=== PATIENT | female | born 1985 | race Caucasian/White ===

== ENCOUNTER → 2021-10-27 16:09 | Outpatient (BNVA) | payer BC, SELFPAY | PROVIDERS: PCP Internal Medicine; Visit Provider Physician Assistant | DX: Z13.89 Encounter for screening for other disorder (principal) ==

== ENCOUNTER 2021-10-29 13:28 | Outpatient (REF) | payer BC, SELFPAY ==
[2021-10-29 16:12] LABS: Estimated Average Glucose 111 mg/dL; Hemoglobin A1c % 5.5 %
[2021-10-29 16:24] LABS: C Reactive Protein 0.52 mg/dL (< or = 0.50)
[2021-10-29 16:48] LABS: Insulin 11 uU/mL (2-29); Vitamin D 25-OH Total 25.5 ng/mL (>30)
[2021-10-29 17:19] LABS: Folate 11.6 ng/mL (> or = 4.0); Vitamin B12 349 pg/mL (200-900)
[2021-10-30 12:06] LABS: Calcium (PTHI) 9.6 mg/dL (8.6-10.2); PTHI 63 pg/mL (16-77)
[2021-11-01 14:06] LABS: Zinc 69 mcg/dL (60-130)
[2021-11-01 15:26] LABS: H Pylori Breath Test Negative (Negative)
[2021-11-03 11:56] LABS: Vitamin B1 11 nmol/L (8-30)
[2021-11-04 00:57] LABS: Vitamin A 54 mcg/dL (38-98)
== END 2021-10-29 13:29 | disposition home or self-care (01) ==
LOC: HO.LAB 13:28
PROVIDERS: PCP Internal Medicine; Referring Provider Physician Assistant; Visit Provider Physician Assistant
DX: Z01.818 Encounter for other preprocedural examination (principal); E66.01 Morbid (severe) obesity due to excess calories; G43.909 Migraine, unspecified, not intractable, without status migrainosus; I10 Essential (primary) hypertension; F32.A Depression, unspecified; F41.0 Panic disorder [episodic paroxysmal anxiety]; Z71.6 Tobacco abuse counseling; Z11.0 Encounter for screening for intestinal infectious diseases
CPT/HCPCS: 36415; 82306; 82607; 82746; 83013; 83036; 83525; 83970; 84425; 84590; 84630; 86140

== ENCOUNTER → 2021-11-05 14:00 | Outpatient (BNVA) | payer BC, SELFPAY | PROVIDERS: PCP Internal Medicine; Visit Provider Counselor Mental Health | DX: F43.10 Post-traumatic stress disorder, unspecified (principal); F32.A Depression, unspecified; E66.01 Morbid (severe) obesity due to excess calories | CPT/HCPCS: 90791 ==

== ENCOUNTER → 2021-11-19 09:07 | Outpatient (BNVA) | payer BC, SELFPAY | PROVIDERS: PCP Internal Medicine; Visit Provider Physician Assistant | DX: Z13.89 Encounter for screening for other disorder (principal) ==

== ENCOUNTER → 2021-12-09 08:10 | Outpatient (BNVA) | payer BC, SELFPAY | PROVIDERS: PCP Internal Medicine; Visit Provider Dietitian, Registered | DX: E66.9 Obesity, unspecified (principal) | CPT/HCPCS: 97802 ==

== ENCOUNTER 2021-12-17 07:37 | Outpatient (REF) | payer BC, SELFPAY ==
--- NOTE | ~2021-12-17 | XR_ITS ---
EXAMINATION: XR CHEST CLINICAL INFORMATION: Morbid obesity COMPARISON: None TECHNIQUE: 2 views of the chest were obtained. FINDINGS: No significant abnormality is noted involving the heart, lungs, mediastinum, bony thorax or soft tissues. XR/XR chest 2V IMPRESSION: No acute disease.
--- NOTE | ~2021-12-17 | US_ITS ---
EXAMINATION: US COMPLETE ABDOMEN WITH LIVER ELASTOGRAPHY CLINICAL INFORMATION: Obesity COMPARISON: None. TECHNIQUE: Real-time imaging of the abdominal viscera. Noninvasive ultrasound liver fibrosis assessment is performed using Odilon ElastPQ point quantification shear wave elastography (2D-SWE) with a C5-2 MHz transducer. Multiple elastography samples are obtained. FINDINGS: PANCREAS: Normal. ABDOMINAL AORTA: The proximal, middle, and distal aortic segments are normal in caliber. INFERIOR VENA CAVA: Visualized portions are normal. LIVER: Liver echotexture is increased. The liver is normal in size. The liver is normal in contour.. There are 2 hypoechoic lesions measuring 1.1 x 1.3 x 0.9 cm in the left lobe and 1.8 x 1.5 x 1.4 cm in the left lobe. No intrahepatic biliary duct dilatation. The right lobe measures 16 cm in length. The left lobe measures 10.6 cm in length. Portal flow is normal/hepatopedal Shear wave liver elastography median stiffness is 1.6 m/s (reference: normal median stiffness is 1.3 m/s or less). IQR/median stiffness to assess sampling precision is 0.09 (reference: good quality data set is IQR/median stiffness of 0.15 or less). GALLBLADDER: Normal. The gallbladder is physiologically distended without evidence of stones, sludge, polyps, wall thickening or pericholecystic fluid. COMMON BILE DUCT: Normal in caliber measuring 0.5 cm in diameter. RIGHT KIDNEY: Normal. No hydronephrosis. No renal calculi or focal parenchymal lesions. The kidney measures 10.4 cm in maximum dimension. LEFT KIDNEY: Normal. No hydronephrosis. No renal calculi or focal parenchymal lesions. The kidney measures 10.2 cm in maximum dimension. SPLEEN: Normal. The spleen measures 10.3 cm in maximum dimension. FREE FLUID: None. US/US abdomen comp w elastography IMPRESSION: 1. Impression: Echogenic liver. 2 hypoechoic liver lesions. Comparison with old outside exams if available is recommended. Otherwise, six-month ultrasound follow-up or liver MRI could be considered. 2. Liver elastography: Adequate liver sampling. In the absence of other known clinical signs, rules out compensated advanced chronic liver disease. REFERENCE: Society of Radiologists in Ultrasound Liver Stiffness Thresholds (2020): LIVER STIFFNESS THRESHOLDS: *Liver Stiffness equal or less than 1.3 m/s: High probability of being normal. *Liver Stiffness less than 1.7 m/s: *Liver Stiffness 1.7-2.1 m/s: Suggestive of compensated advanced chronic liver disease but need further test for confirmation. *Liver Stiffness over 2.1 m/s: Rules in compensated advanced chronic liver disease. *Liver Stiffness over 2.4 m/s: Suggestive of clinically significant portal hypertension. QUALITY OF DATA SET: *IQR/Median value equal or less than 0.15 implies a quality data set. *IQR/Median value over 0.15 implies a poor quality data set. SIGNIFICANT CHANGE FROM PRIOR EXAM: Significant change if liver stiffness measurement is 10% or greater from prior exam. OTHER CONSIDERATIONS: The stage of liver fibrosis may be overestimated in the setting of acute hepatitis, liver inflammation, elevated liver function tests, hepatic vascular congestion, obstructive cholestasis, non-fasting state, and infiltrative diseases such as amyloidosis and lymphoma. In some patients with NAFLD, the liver stiffness thresholds for compensated advanced chronic liver disease may be lower. In causes other than viral hepatitis and NAFLD, liver stiffness thresholds are not well established.
--- NOTE | ~2021-12-17 | FL_ITS ---
EXAMINATION: XR GI SERIES CLINICAL INFORMATION: Morbid obesity. COMPARISON: None TECHNIQUE: Air-contrast upper GI examination. FINDINGS: There is normal apposition of the vocal cords while saying E. There is normal elevation of the soft palate while saying candy. No nasopharyngeal reflux or tracheal aspiration was identified. No Zenker's diverticulum is seen. There is normal esophageal motility without evidence of stricture or mucosal abnormality. No hiatal hernia. There was some spontaneous transient mild gastroesophageal reflux within the distal third of the esophagus. The stomach demonstrated normal distensibility without abnormal mass or ulceration. There was no delay in gastric emptying. The duodenal bulb and sweep appeared unremarkable. FLUOROSCOPY TIME: 1.4 minutes DOSE AREA PRODUCT: 22.253 Gy-cm2 (herrera-centimeter squared) FL/FL upper GI series IMPRESSION: Mild gastroesophageal reflux which cleared rapidly. Otherwise unremarkable air-contrast upper GI examination.
--- NOTE | 2021-12-17 09:48 | ECG_ITS ---
Test Reason : obesity Blood Pressure : / mmHG Vent. Rate : 063 BPM Atrial Rate : 063 BPM P-R Int : 144 ms QRS Dur : 082 ms QT Int : 418 ms P-R-T Axes : 019 008 011 degrees QTc Int : 427 ms Normal sinus rhythm Normal ECG No previous ECGs available Referred By: Yesenia Cardoza Electronically Signed By:YOUNG GEORGE
== END 2021-12-17 07:38 | disposition home or self-care (01) ==
LOC: HO.US 07:37
PROVIDERS: PCP Internal Medicine; Visit Provider Physician Assistant
DX: Z01.818 Encounter for other preprocedural examination (principal); E66.01 Morbid (severe) obesity due to excess calories
CPT/HCPCS: 71046; 74240; 76705; 76981; 93005

== ENCOUNTER → 2022-01-05 14:54 | Outpatient (BNVA) | payer BC, SELFPAY | PROVIDERS: PCP Internal Medicine; Visit Provider Physician Assistant | DX: E66.01 Morbid (severe) obesity due to excess calories (principal) ==

== ENCOUNTER 2022-01-27 14:51 | Outpatient (REF) | payer BC, SELFPAY ==
--- NOTE | ~2022-01-27 | MR_ITS ---
EXAMINATION: MR ABDOMEN WITHOUT AND WITH CONTRAST CLINICAL INFORMATION: Liver lesions COMPARISON: Abdominal ultrasound 12/07/2021 TECHNIQUE: MRI of the abdomen before and after the IV administration of 10 mL of Gadavist was obtained using routine sequences. FINDINGS: LUNG BASES: The visualized lung bases are unremarkable. KIDNEYS AND URETERS: Bosniak 1 benign-appearing right renal cyst, no imaging follow-up recommended. GALLBLADDER: Unremarkable. LIVER AND BILIARY TREE: Loss of signal on opposed phase imaging compatible with hepatic steatosis. No suspicious liver lesion or MR correlate to the sonographic findings. Liver is enlarged measuring 18.9 cm in span. PANCREAS: Unremarkable SPLEEN: Unremarkable ADRENAL GLANDS: Unremarkable GASTROINTESTINAL TRACT: Unremarkable. LYMPH NODES: No lymphadenopathy. VASCULAR: Unremarkable ABDOMINAL WALL: Unremarkable. OSSEOUS STRUCTURES: Unremarkable. MR/MR abdomen wo/w con IMPRESSION: No suspicious liver lesion or MR correlate to the sonographic findings. Hepatomegaly and hepatic steatosis.
== END 2022-01-27 14:52 | disposition home or self-care (01) ==
LOC: HO.MRI 14:51
PROVIDERS: Visit Provider Surgery
DX: R16.0 Hepatomegaly, not elsewhere classified (principal)
CPT/HCPCS: 74183; A9585

== ENCOUNTER 2022-03-06 07:56 | Outpatient (REF) | payer BC, SELFPAY | END 2022-03-06 07:57 | disposition home or self-care (01) | LOC: HO.LAB 07:56 | PROVIDERS: PCP Internal Medicine; Visit Provider Physician Assistant Surgical | DX: Z13.89 Encounter for screening for other disorder (principal) ==

== ENCOUNTER 2022-03-18 06:17 | Inpatient (IN) | payer BC, SELFPAY ==
[2022-01-30 12:23] LABS: MANUAL DIFF FLAG NO
[2022-01-30 12:42] LABS: Basophils Percent Auto 0.3 % (0-2); Eosinophils Absolute Auto 0.1 X10*3/uL (0.0-0.4); Eosinophils Percent Auto 1.4 % (0-4); Hematocrit 44.4 % (37.0-47.0); Hemoglobin 14.5 g/dl (12.0-16.0); Imm Gran Abs Auto 0.01 X10*3/uL (0.00-0.03); Imm Gran Pct Auto 0.1 % (0.0-0.4); Lymphocytes Absolute Auto 1.8 X10*3/uL (1.2-4.9); Lymphocytes Percent Auto 24.2 % (20-40); Mean Corpuscular HGB Conc 32.7 g/dl (31.0-35.0); Mean Corpuscular Volume 85.7 fL (80.0-98.0); Mean Platelet Volume 12.1 fL (9.4-12.3); Monocytes Absolute Auto 0.7 X10*3/uL (0.1-1.2); Monocytes Percent Auto 9.5 % (2-11); Neutrophils Absolute Auto 4.7 x10*3/uL (2.0-8.3); Neutrophils Percent Auto 64.5 % (45-73); Platelet Count 219 X10*3/uL (160-400); Red Blood Count 5.18 X10*6/uL (4.20-5.50); Red Cell Distribution Width 14.1 % (11.0-16.0); White Blood Count 7.2 X10*3/uL (4.8-10.8)
[2022-01-30 12:54] LABS: Estimated Average Glucose 97 mg/dL
[2022-01-30 13:01] LABS: Alanine Aminotransferase 20 U/L (0-31); Albumin Level 4.4 g/dL (3.5-5.0); Alkaline Phosphatase 66 U/L (39-117); Anion Gap 13 (12-20); Aspartate Amino Transferase 16 U/L (5-31); Bilirubin Total 0.2 mg/dL (0.0-1.0); Blood Urea Nitrogen 13 mg/dL (9-16); C Reactive Protein 1.16 mg/dL (< or = 0.50); Calcium 9.8 mg/dL (8.4-10.2); Carbon Dioxide 28 mmol/L (22-29); Chloride 104 mmol/L (96-108); Cholesterol 183 mg/dL; Estimated Glomerular Filt Rate > 60; Glucose Random 101 mg/dL (60-115); HDL Cholesterol 29 mg/dL; LDL Cholesterol Calculated 131 mg/dl; Potassium 4.6 mmol/L (3.3-5.1); Sodium 140 mmol/L (135-145); Total Protein 7.1 g/dL (6.5-8.0); Triglycerides 119 mg/dL
[2022-01-30 13:13] LABS: Partial Thromboplastin Time 34.2 SEC (24.1-38.0)
[2022-01-30 13:24] LABS: Insulin 11 uU/mL (2-29); TSH reflex Free T4 1.48 uIU/mL (0.32-4.0)
--- NOTE | 2022-01-31 23:50 | P.HPSUR_ITS ---
Pre-Procedural Eval Section A Date of Service: 01/31/22 The patient is an INPATIENT: Yes The History & Physical has been completed within 30 days and I have reviewed it.: Yes Section B Chief Complaint: obesity Relevant Family History (Specify if Yes): No Relevant Social History: None Present Medications: None Medical History: No relevant PMH History of Previous Operations: No relevant previous surgery Allergies: Allergies Allergy/AdvReac Type Severity Reaction Status Date / Time Sulfa (Sulfonamide Allergy Severe Blister Verified 01/14/22 08:17 Antibiotics) Review of Systems Sugical H&P ROS: Negative: Constitution, Cardiovascular, Respiratory, Neurological, Psychiatric, Hem-Onc, Allergic/Immunologic, Gastrointestinal, Genitourinary, Musculoskeletal, Integumentary, Endocrine and Eyes/Ears/Nose/Thro at Exam Surgical H&P Exam: Normal: HEENT, Normal: Heart, Normal: Lungs, Normal: Extremities, Normal: Abdomen, Normal: Skin and Normal: Neurological Plan Diagnosis/Plan: Unchanged I have reviewed the history and physical and performed a pertinent physical examination on my patient. No changes have occurred unless specified.
[2022-02-03 13:55] VITALS: BMI 48.7
--- NOTE | 2022-02-04 09:11 | P.CONAN_ITS ---
HPI - Anesthesia Eval Consult details Narrative: 36yo F for Gastrectomy Sleeve EGD,Possible diaphragmatic hernia,Possible ventral hernia,Possible open PMFSH Active Problems Active Problems: All Active Problems (Updated 02/03/22 @ 13:54 by Dianne Eckert RN) Morbid obesity (Acute) Pre-op evaluation (Acute) HTN (hypertension), benign (Acute) Depression (Acute) PTSD (post-traumatic stress disorder) (Acute) Migraine (Acute) Anxiety (Acute) Liver mass (Acute) Past Medical History Medical History (Updated 02/03/22 @ 13:54 by Dianne Eckert RN) Anxiety COVID-19 vaccine series completed Depression Eating disorder Exercise-induced asthma HTN (hypertension) Migraine PTSD (post-traumatic stress disorder) Family History Family History Mother Depression Alcoholism Father No problems noted. Sister Obesity Thyroid condition Depression Anxiety Sister No problems noted. Brother No problems noted. Daughter No problems noted. Surgical History Surgical History (Updated 02/03/22 @ 13:52 by Dianne Eckert RN) History of colposcopy History of placement of ear tubes Hx of adenoidectomy Hx of bladder endoscopy Hx of bone graft Hx of colonoscopy Hx of dilation and curettage Hx of wisdom tooth extraction Social History Social History Are you a primary resident care associate to a significant other at home: No Do you presently have visiting nurse or other home services: No Alcohol intake: never Patient Tobacco Use Status: Never used Tobacco Meds Allergies Allergy/AdvReac Type Severity Reaction Status Date / Time Sulfa (Sulfonamide Allergy Severe Blister Verified 01/14/22 08:17 Antibiotics) Home Medications Medication Instructions Recorded Confirmed Last Taken Type citalopram 40 mg tablet 40 mg PO QAM 10/27/21 02/03/22 Unknown History lorazepam 0.5 mg tablet 0.5 mg PO DAILY PRN Anxiety 10/27/21 02/03/22 Unknown History metoprolol succinate 25 mg 25 mg PO QAM 10/27/21 02/03/22 Unknown History tablet,extended release 24 hr multivitamin (Daily Multi-Vitamin) 1 tab PO DAILY 10/27/21 02/03/22 Unknown History naproxen sodium 220 mg capsule 220 mg PO BID PRN Pain 10/27/21 02/03/22 01/22/22 History verapamil 180 mg tablet,extended 180 mg PO QPM 10/27/21 02/03/22 Unknown History release albuterol sulfate 90 mcg/actuation 2 inh inhalation Q4H PRN Shortness 02/03/22 02/03/22 Unknown History breath activated powder inhaler Of Breath (ProAir RespiClick) Exam Exam Date and Time: February 04, 2022 0911 Height,Weight and Vital Signs: Height 5 ft 6 in Weight 136.985 kg Pertinent Lab Results Pertinent Lab Results: Laboratory Tests 01/30/22 01/30/22 01/30/22 12:16 12:20 12:20 WBC 7.2 RBC 5.18 Hgb 14.5 Hct 44.4 MCV 85.7 MCH 28.0 MCHC 32.7 RDW 14.1 Plt Count 219 MPV 12.1 Immature Gran % (Auto) 0.1 Neut % (Auto) 64.5 Lymph % (Auto) 24.2 [place] % (Auto) 9.5 Eos % (Auto) 1.4 Baso % (Auto) 0.3 Lymph # (Auto) 1.8 [place] # (Auto) 0.7 Eos # (Auto) 0.1 Baso # (Auto) 0.0 Abs Immat Gran (auto) 0.01 Absolute Neuts (auto) 4.7 Absolute Nucleated RBC 0.000 Nucleated RBC % (auto) 0.0 PT 12.0 INR 1.0 APTT 34.2 Sodium Potassium Chloride Carbon Dioxide Anion Gap BUN Creatinine Estim Creat Clear Calc Estimated GFR Random Glucose Estimat Average Glucose Hemoglobin A1c % Insulin Level Calcium Total Bilirubin AST ALT Alkaline Phosphatase C-Reactive Protein Total Protein Albumin Triglycerides Cholesterol LDL Cholesterol, Calc HDL Cholesterol TSH Blood Type A Negative Antibody Screen NEGATIVE 01/30/22 01/30/22 12:20 12:20 WBC RBC Hgb Hct MCV MCH MCHC RDW Plt Count MPV Immature Gran % (Auto) Neut % (Auto) Lymph % (Auto) [place] % (Auto) Eos % (Auto) Baso % (Auto) Lymph # (Auto) [place] # (Auto) Eos # (Auto) Baso # (Auto) Abs Immat Gran (auto) Absolute Neuts (auto) Absolute Nucleated RBC Nucleated RBC % (auto) PT INR APTT Sodium 140 Potassium 4.6 Chloride 104 Carbon Dioxide 28 Anion Gap 13 BUN 13 Creatinine 0.93 Estim Creat Clear Calc TNP Estimated GFR > 60 Random Glucose 101 Estimat Average Glucose 97 Hemoglobin A1c % 5.0 Insulin Level 11 Calcium 9.8 Total Bilirubin 0.2 AST 16 ALT 20 Alkaline Phosphatase 66 C-Reactive Protein 1.16 H Total Protein 7.1 Albumin 4.4 Triglycerides 119 Cholesterol 183 LDL Cholesterol, Calc 131 HDL Cholesterol 29 TSH 1.48 Blood Type Antibody Screen Narrative Narrative: EKG 11/2021 Vent. Rate : 063 BPM ? ? Atrial Rate : 063 BPM ?? P-R Int : 144 ms? QRS Dur : 082 ms ? ? QT Int : 418 ms ? ? ? P-R-T Axes : 019 008 011 degrees ?? QTc Int : 427 ms ? Normal sinus rhythm Normal ECG No previous ECGs available Assessment and Plan Assessment Anesthesia Assessment: Chart Reviewed
[2022-02-04 13:04] LABS: COVID-19 Test Positive (Negative); IDNOW Serial# 9DB6401D
[2022-03-06 08:20] LABS: MANUAL DIFF FLAG NO
[2022-03-06 08:33] LABS: Basophils Percent Auto 0.5 % (0-2); Eosinophils Absolute Auto 0.1 X10*3/uL (0.0-0.4); Eosinophils Percent Auto 1.7 % (0-4); Hematocrit 43.8 % (37.0-47.0); Hemoglobin 14.5 g/dl (12.0-16.0); Imm Gran Abs Auto 0.03 X10*3/uL (0.00-0.03); Imm Gran Pct Auto 0.4 % (0.0-0.4); Lymphocytes Absolute Auto 2.1 X10*3/uL (1.2-4.9); Lymphocytes Percent Auto 25.1 % (20-40); Mean Corpuscular HGB Conc 33.1 g/dl (31.0-35.0); Mean Corpuscular Volume 84.7 fL (80.0-98.0); Mean Platelet Volume 11.9 fL (9.4-12.3); Monocytes Absolute Auto 0.7 X10*3/uL (0.1-1.2); Monocytes Percent Auto 8.9 % (2-11); Neutrophils Absolute Auto 5.2 x10*3/uL (2.0-8.3); Neutrophils Percent Auto 63.4 % (45-73); Platelet Count 229 X10*3/uL (160-400); Red Blood Count 5.17 X10*6/uL (4.20-5.50); Red Cell Distribution Width 14.7 % (11.0-16.0); White Blood Count 8.2 X10*3/uL (4.8-10.8)
[2022-03-06 08:41] LABS: Prothrombin Time 11.7 SEC (10.0-13.1)
[2022-03-06 08:43] LABS: Partial Thromboplastin Time 31.2 SEC (26.0-36.4)
[2022-03-06 08:48] LABS: Estimated Average Glucose 108 mg/dL; Hemoglobin A1c % 5.4 %
[2022-03-06 09:10] LABS: Alanine Aminotransferase 14 U/L (0-31); Albumin Level 4.5 g/dL (3.5-5.0); Alkaline Phosphatase 55 U/L (39-117); Anion Gap 13 (12-20); Aspartate Amino Transferase 12 U/L (5-31); Bilirubin Total 0.5 mg/dL (0.0-1.0); Blood Urea Nitrogen 16 mg/dL (9-16); C Reactive Protein 0.54 mg/dL (< or = 0.50); Calcium 9.6 mg/dL (8.4-10.2); Carbon Dioxide 28 mmol/L (22-29); Chloride 102 mmol/L (96-108); Cholesterol 208 mg/dL; Creatinine Clr Calc Pharmacy 128.9; Estimated Glomerular Filt Rate > 60; Glucose Random 105 mg/dL (60-115); HDL Cholesterol 34 mg/dL; LDL Cholesterol Calculated 145 mg/dl; Potassium 4.2 mmol/L (3.3-5.1); Sodium 139 mmol/L (135-145); Triglycerides 146 mg/dL
[2022-03-06 09:32] LABS: TSH reflex Free T4 1.59 uIU/mL (0.32-4.0)
--- NOTE | 2022-03-14 15:06 | P.HPSUR_ITS ---
Pre-Procedural Eval Section A Date of Service: 03/14/22 The patient is an INPATIENT: Yes The History & Physical has been completed within 30 days and I have reviewed it.: Yes Section B Chief Complaint: obesity Relevant Family History (Specify if Yes): No Relevant Social History: None Present Medications: None Medical History: No relevant PMH History of Previous Operations: No relevant previous surgery Allergies: Allergies Allergy/AdvReac Type Severity Reaction Status Date / Time Sulfa (Sulfonamide Allergy Severe Blister Verified 01/14/22 08:17 Antibiotics) Review of Systems Sugical H&P ROS: Negative: Constitution, Cardiovascular, Respiratory, Neurological, Psychiatric, Hem-Onc, Allergic/Immunologic, Gastrointestinal, Genitourinary, Musculoskeletal, Integumentary, Endocrine and Eyes/Ears/Nose/Thro at Exam Surgical H&P Exam: Normal: HEENT, Normal: Heart, Normal: Lungs, Normal: Extremities, Normal: Abdomen, Normal: Skin and Normal: Neurological Plan Diagnosis/Plan: Unchanged I have reviewed the history and physical and performed a pertinent physical examination on my patient. No changes have occurred unless specified.
--- NOTE | 2022-03-17 10:10 | P.CONAN_ITS ---
Documented by User: Dariana Haddad NP 03/17/22 10:11 HPI - Anesthesia Eval Consult details Narrative: 36yo F for Gastrectomy Sleeve EGD,Possible diaphragmatic hernia,Possible ventral hernia,Possible open PMFSH Active Problems Active Problems: All Active Problems (Updated 02/03/22 @ 13:54 by Dianne Eckert RN) Morbid obesity (Acute) Pre-op evaluation (Acute) HTN (hypertension), benign (Acute) Depression (Acute) PTSD (post-traumatic stress disorder) (Acute) Migraine (Acute) Anxiety (Acute) Liver mass (Acute) Past Medical History Medical History Anxiety COVID-19 vaccine series completed Depression Eating disorder Exercise-induced asthma HTN (hypertension) Migraine PTSD (post-traumatic stress disorder) Family History Family History Mother Depression Alcoholism Father No problems noted. Sister Obesity Thyroid condition Depression Anxiety Sister No problems noted. Brother No problems noted. Daughter No problems noted. Surgical History Surgical History History of colposcopy History of placement of ear tubes Hx of adenoidectomy Hx of bladder endoscopy Hx of bone graft Hx of colonoscopy Hx of dilation and curettage Hx of wisdom tooth extraction Social History Social History Are you a primary hearing healthcare practitioner to a significant other at home: No Do you presently have visiting nurse or other home services: No Alcohol intake: never Patient Tobacco Use Status: Never used Tobacco Use of substances other than those prescribed or required for medical reasons: No Have you been hit, kicked, punched, or otherwise hurt by someone within the past year? If so, by whom?: No Are you DNR?: No Advance Directives: No Advance Directives Information Provided: No (patient declined brochure-is aware of how to obtain form) Advance Directives on File: No Recently lost weight without trying: No Eating poorly because of decreased appetite: No Nutrition Risks: No Nutritional Risk Patient : No FDLMP: 01/22/22 : No Poor oral hygiene: No (upper left front dental implant) Meds Allergies Allergy/AdvReac Type Severity Reaction Status Date / Time Sulfa (Sulfonamide Allergy Severe Blister Verified 01/14/22 08:17 Antibiotics) Home Medications Medication Instructions Recorded Confirmed Last Taken Type citalopram 40 mg tablet 40 mg PO QAM 10/27/21 03/04/22 03/17/22 History lorazepam 0.5 mg tablet 0.5 mg PO DAILY PRN Anxiety 10/27/21 03/04/22 02/15/22 History metoprolol succinate 25 mg 25 mg PO QAM 10/27/21 03/04/22 03/18/22 History tablet,extended release 24 hr multivitamin (Daily Multi-Vitamin 1 tab PO DAILY 10/27/21 03/04/22 03/04/22 History tablet) verapamil 180 mg tablet,extended 180 mg PO QPM 10/27/21 03/04/22 03/17/22 History release albuterol sulfate 90 mcg/actuation 2 inh inhalation Q4H PRN Shortness 02/03/22 03/04/22 02/15/22 History breath activated powder inhaler Of Breath (ProAir RespiClick) Exam Exam Date and Time: March 17, 2022 1010 Height,Weight and Vital Signs: Height 5 ft 6 in Weight 136.985 kg Pertinent Lab Results Pertinent Lab Results: Laboratory Tests 01/30/22 01/30/22 01/30/22 12:16 12:20 12:20 WBC 7.2 RBC 5.18 Hgb 14.5 Hct 44.4 MCV 85.7 MCH 28.0 MCHC 32.7 RDW 14.1 Plt Count 219 MPV 12.1 Immature Gran % (Auto) 0.1 Neut % (Auto) 64.5 Lymph % (Auto) 24.2 [place] % (Auto) 9.5 Eos % (Auto) 1.4 Baso % (Auto) 0.3 Lymph # (Auto) 1.8 [place] # (Auto) 0.7 Eos # (Auto) 0.1 Baso # (Auto) 0.0 Abs Immat Gran (auto) 0.01 Absolute Neuts (auto) 4.7 Absolute Nucleated RBC 0.000 Nucleated RBC % (auto) 0.0 PT 12.0 INR 1.0 APTT 34.2 Sodium Potassium Chloride Carbon Dioxide Anion Gap BUN Creatinine Estim Creat Clear Calc Estimated GFR Random Glucose Estimat Average Glucose Hemoglobin A1c % Insulin Level Calcium Total Bilirubin AST ALT Alkaline Phosphatase C-Reactive Protein Total Protein Albumin Triglycerides Cholesterol LDL Cholesterol, Calc HDL Cholesterol TSH COVID-19 ([facility]O) COVID-19 Clin Com Blood Type A Negative Antibody Screen NEGATIVE 01/30/22 01/30/22 02/04/22 12:20 12:20 12:44 WBC RBC Hgb Hct MCV MCH MCHC RDW Plt Count MPV Immature Gran % (Auto) Neut % (Auto) Lymph % (Auto) [place] % (Auto) Eos % (Auto) Baso % (Auto) Lymph # (Auto) [place] # (Auto) Eos # (Auto) Baso # (Auto) Abs Immat Gran (auto) Absolute Neuts (auto) Absolute Nucleated RBC Nucleated RBC % (auto) PT INR APTT Sodium 140 Potassium 4.6 Chloride 104 Carbon Dioxide 28 Anion Gap 13 BUN 13 Creatinine 0.93 Estim Creat Clear Calc TNP Estimated GFR > 60 Random Glucose 101 Estimat Average Glucose 97 Hemoglobin A1c % 5.0 Insulin Level 11 Calcium 9.8 Total Bilirubin 0.2 AST 16 ALT 20 Alkaline Phosphatase 66 C-Reactive Protein 1.16 H Total Protein 7.1 Albumin 4.4 Triglycerides 119 Cholesterol 183 LDL Cholesterol, Calc 131 HDL Cholesterol 29 TSH 1.48 COVID-19 ([facility]) Positive A COVID-19 Clin Com See Note Blood Type Antibody Screen 03/06/22 03/06/22 03/06/22 08:15 08:15 08:15 WBC 8.2 RBC 5.17 Hgb 14.5 Hct 43.8 MCV 84.7 MCH 28.0 MCHC 33.1 RDW 14.7 Plt Count 229 MPV 11.9 Immature Gran % (Auto) 0.4 Neut % (Auto) 63.4 Lymph % (Auto) 25.1 [place] % (Auto) 8.9 Eos % (Auto) 1.7 Baso % (Auto) 0.5 Lymph # (Auto) 2.1 [place] # (Auto) 0.7 Eos # (Auto) 0.1 Baso # (Auto) 0.0 Abs Immat Gran (auto) 0.03 Absolute Neuts (auto) 5.2 Absolute Nucleated RBC 0.000 Nucleated RBC % (auto) 0.0 PT 11.7 INR 1.0 APTT 31.2 Sodium 139 Potassium 4.2 Chloride 102 Carbon Dioxide 28 Anion Gap 13 BUN 16 Creatinine 0.86 Estim Creat Clear Calc 128.9 Estimated GFR > 60 Random Glucose 105 Estimat Average Glucose Hemoglobin A1c % Insulin Level Calcium 9.6 Total Bilirubin 0.5 AST 12 ALT 14 Alkaline Phosphatase 55 C-Reactive Protein 0.54 H Total Protein 7.0 Albumin 4.5 Triglycerides 146 Cholesterol 208 LDL Cholesterol, Calc 145 HDL Cholesterol 34 TSH 1.59 COVID-19 ([facility]O) COVID-[employer] Blood Type Antibody Screen 03/06/22 03/06/22 08:15 08:15 WBC RBC Hgb Hct MCV MCH MCHC RDW Plt Count MPV Immature Gran % (Auto) Neut % (Auto) Lymph % (Auto) [place] % (Auto) Eos % (Auto) Baso % (Auto) Lymph # (Auto) [place] # (Auto) Eos # (Auto) Baso # (Auto) Abs Immat Gran (auto) Absolute Neuts (auto) Absolute Nucleated RBC Nucleated RBC % (auto) PT INR APTT Sodium Potassium Chloride Carbon Dioxide Anion Gap BUN Creatinine Estim Creat Clear Calc Estimated GFR Random Glucose Estimat Average Glucose 108 Hemoglobin A1c % 5.4 Insulin Level Calcium Total Bilirubin AST ALT Alkaline Phosphatase C-Reactive Protein Total Protein Albumin Triglycerides Cholesterol LDL Cholesterol, Calc HDL Cholesterol TSH COVID-19 ([facility]ALBERTO) COVID-19 [employer] Blood Type A Negative Antibody Screen NEGATIVE Narrative Narrative: EKG 11/2021 Vent. Rate : 063 BPM ? ? Atrial Rate : 063 BPM ?? P-R Int : 144 ms? QRS Dur : 082 ms ? ? QT Int : 418 ms ? ? ? P-R-T Axes : 019 008 011 degrees ?? QTc Int : 427 ms ? Normal sinus rhythm Normal ECG No previous ECGs available Assessment and Plan Assessment Anesthesia Assessment: Chart Reviewed Documented by User: Soledad Joyner MD 03/18/22 07:19 [facility] Past Medical History Medical History Anxiety COVID-19 vaccine series completed Depression Eating disorder Exercise-induced asthma HTN (hypertension) Migraine PTSD (post-traumatic stress disorder) Family History Family History Mother Depression Alcoholism Father No problems noted. Sister Obesity Thyroid condition Depression Anxiety Sister No problems noted. Brother No problems noted. Daughter No problems noted. Family history of problems with anesthesia: No Surgical History Surgical History History of colposcopy History of placement of ear tubes Hx of adenoidectomy Hx of bladder endoscopy Hx of bone graft Hx of colonoscopy Hx of dilation and curettage Hx of wisdom tooth extraction History of Problems with Anesthesia: No Social History Social History Are you a primary hearing healthcare practitioner to a significant other at home: No Do you presently have visiting nurse or other home services: No Alcohol intake: never Patient Tobacco Use Status: Never used Tobacco Use of substances other than those prescribed or required for medical reasons: No Have you been hit, kicked, punched, or otherwise hurt by someone within the past year? If so, by whom?: No Are you DNR?: No Advance Directives: No Advance Directives Information Provided: No (patient declined brochure-is aware of how to obtain form) Advance Directives on File: No Recently lost weight without trying: No Eating poorly because of decreased appetite: No Nutrition Risks: No Nutritional Risk Patient : No FDLMP: 01/22/22 : No Poor oral hygiene: No (upper left front dental implant) Meds Allergies Allergy/AdvReac Type Severity Reaction Status Date / Time Sulfa (Sulfonamide Allergy Severe Blister Verified 01/14/22 08:17 Antibiotics) Home Medications Medication Instructions Recorded Confirmed Last Taken Type citalopram 40 mg tablet 40 mg PO QAM 10/27/21 03/04/22 03/17/22 History lorazepam 0.5 mg tablet 0.5 mg PO DAILY PRN Anxiety 10/27/21 03/04/22 02/15/22 History metoprolol succinate 25 mg 25 mg PO QAM 10/27/21 03/04/22 03/18/22 History tablet,extended release 24 hr multivitamin (Daily Multi-Vitamin 1 tab PO DAILY 10/27/21 03/04/22 03/04/22 History tablet) verapamil 180 mg tablet,extended 180 mg PO QPM 10/27/21 03/04/22 03/17/22 History release albuterol sulfate 90 mcg/actuation 2 inh inhalation Q4H PRN Shortness 02/03/22 03/04/22 02/15/22 History breath activated powder inhaler Of Breath (ProAir RespiClick) Exam Airway Mallampati Class: II TM Dist: >3cm Neck ROM: Full Assessment and Plan Assessment Anesthesia Assessment: Anesthesia Plan Discussed Final Anesthetic Review Family History of Problems with Anesthesia: No History of Problems with Anesthesia: No NPO: Yes ASA Class: III Final Preanesthetic Review: No Changes in Pt Med Stat, Meds/Allgs Chart Reviewed, Consent Obtained/Reviewed and Anes Risks/Benef Reviewed Patient Risk: Intermediate Procedure Risk: Intermediate Anesthetic Plan Anesthetic Plan: GA Disposition: Standard PACU
[2022-03-18] VITALS (18 sets, daily range): BP systolic 126–160; BP diastolic 53–85; PULSE 66–101; RESP 10–20; TEMP 36.4–37.4; O2SAT 93–100
[2022-03-18 06:53] LABS: UPreg QC Valid YES; Urine Pregnancy NEGATIVE (NEGATIVE)
[2022-03-18 07:04] LABS: COVID-19 Test Negative (Negative); IDNOW Serial# 16C4AD1C
[2022-03-18] MEDS: Lactated Ringers 1,000 ML 100 ML IVCONT ×3 (07:07→20:53)
[2022-03-18] MEDS: Lactated Ringers 1,000 ML 999 ML IV (07:08)
--- NOTE | 2022-03-18 07:22 | PHA.MEDREC ---
Pharmacy Consult ? Medication Reconciliation Pharmacy has reviewed the medication reconciliation completed by nursing. There are no remarkable issue for provider's attention Bucky BeyD
--- NOTE | 2022-03-18 10:26 | P.DS_ITS ---
DS: Providers Provider Date of Service: 03/19/22 Date of admission: 03/18/22 06:17 Primary care physician: Gilma Mejia MD DS: Summary Hospital Course Hospital Course: ADMITTING DIAGNOSIS: morbid obesity, HTN, depression , anxiety, PTSD ? DISCHARGE DIAGNOSIS: same, s/p laparoscopic sleeve gastrectomy ? PAST SURGICAL HISTORY: adenoidectomy ? PROCEDURE: upper endoscopy, laparoscopic sleeve gastrectomy ? DISCHARGE SUMMARY: ? History of Present Illness: ? The patient is a?36 year-old woman with a BMI of?55.7 kg/m2 and associated co-morbidities as described above. The patient had extensive work-up,lost?53 lbs preoperatively and was electively scheduled for laparoscopic, possible open sleeve gastrectomy and gastropexy. Risks and complications of the surgery were discussed with the patient in advance, particularly the possibility of , pulmonary embolism, anastomotic leak, bleeding, bowel injury, GERD, cardiac, renal or pulmonary complications. The patient understood all the risks and was in agreement with the surgical plan. ? Hospital Course: ? The patient underwent an uneventful laparoscopic sleeve gastrectomy with gastro pexy on the day of admission. Postoperatively, the patient was transferred to the surgical floor. The patient received IV Acetaminophen and IV dilaudid for pain control. Patient was started on bariatric phase 1 diet POD #0. On postoperative day one, the patient was feeling well without nausea, vomiting, fevers, or tachycardia. The patient had some mild incisional pain and the abdomen was soft. ? On the morning of postoperative day one, the patient was continued on 1 ounce of water or ice every half hour. During the day, the patient did fairly well, having some incisional pain, but able to ambulate adequately and to tolerate liquids well. ? Since the patient is doing well, we decided that the patient was ready to be discharged. The patient was given instructions to follow-up with me next week and to call my office for any fever over 101, persistent abdominal pain, nausea, vomiting, GERD, symptoms of DVT such as calf tenderness, or leg swelling, or pulmonary embolism such as chest pain or shortness of breath. The patient was also instructed to drink 40-60 ounces of liquids per day using the 1-ounce cups. The patient had been given prescriptions for Tylenol for pain, Zofran prn for nausea, and pantoprazole and carafate previously. The patient was encouraged to ambulate and use the incentive spirometer. The patient was allowed to shower, but no baths, and encouraged to stay active at home. All of these instructions were given to the patient personally. All questions were answered and the patient understood all instructions, the instructions were also given to the patient in print. Time Spent with Patient Time attestation: Total time spent providing and/or coordinating discharge services: Discharge coordination time: Less than 30 minutes Quality: Safe Use of Opioids Does Pt have an Active Cancer Diagnosis on the Problem List?: No Quality: Stroke Does the patient have a stroke diagnosis?: No Physical Exam Vital Signs: Vital Signs: Last Vital Signs Temp 97.6 F 03/18/22 06:22 Pulse 79 03/18/22 06:22 Resp 16 03/18/22 06:22 BP 141/85 H 03/18/22 06:22 Pulse Ox 95 03/18/22 06:22 O2 Del Method 03/18/22 06:22 BMI result Body Mass Index 48.7 DS: Data Data Completed and Pending Pending studies at discharge: Pending at discharge 03/18/22 09:40 Surgical [PTH] Routine Labs on day of discharge: Laboratory Results - last 24 hr 03/17/22 03/18/22 03/18/22 11:50 06:37 06:38 Urine Test NEGATIVE COVID-19 (ADALBERTO) Cancelled Negative COVID-19 Clin Com Cancelled See Note Discharge Plan Discharge Patient Disposition: Home, Self-Care Discharge Diagnosis: s/p laparoscopic sleeve gastrectomy Referrals: Gilma Mejia MD [Primary Care Provider] - 1 Week Discharge Medications: Continued ProAir RespiClick 90 mcg/actuation Aerosol Powdr Breath Activated 2 inh INHALATION Q4H PRN (Reason: Shortness Of Breath) lorazepam 0.5 mg tablet 0.5 mg PO DAILY PRN (Reason: Anxiety) citalopram 40 mg tablet 40 mg PO QAM pantoprazole 40 mg tablet,delayed release (DR/EC) 40 mg PO DAILY Qty: 30 2RF sucralfate 100 mg/mL suspension 10 ml PO BID Qty: 400 2RF ondansetron HCl 4 mg tablet 4 mg PO Q12H Qty: 20 0RF Held metoprolol succinate 25 mg tablet extended release 24 hr 25 mg PO QAM Hold Instructions: Resume on 03/20/22. Measure your blood pressure before you take the medicine and send it to Dr. Toro. Do not take the medication before you hear from Dr. Toro or blood pressure is less than 120/70 verapamil 180 mg tablet extended release 180 mg PO QPM Hold Instructions: Resume on 03/20/22. Measure your blood pressure before you take the medicine and send it to Dr. Toro. Do not take the medication before you hear from Dr. Toro or blood pressure is less than 120/70 Discontinued cyanocobalamin (vitamin B-12) 500 mcg tablet 500 mcg PO DAILY Qty: 30 6RF cholecalciferol (vitamin D3) 25 mcg (1,000 unit) capsule 25 mcg PO DAILY Qty: 30 6RF multivitamin [Daily Multi-Vitamin] Tablet 1 tab PO DAILY polyethylene glycol 3350 [Miralax] 17 gram powder in packet 17 g PO DAILY Qty: 14 0RF Rx Instructions: Do 7 packets mixing each one with 8oz of water on 02/03/2022 and another 7 packets on 02/04/2022 polyethylene glycol 3350 [Miralax] 17 gram powder in packet 17 g PO DAILY Qty: 14 0RF Rx Instructions: Please do 7 packets mixing each one with 8oz of water 2 days prior to surgery and another 7 packets 1 day before surgery Discharge Orders: Discharge Order (Routine); Ordered 03/19/22 Ordered By: Gucci Toro Activity on Discharge: No heavy lifting Stand Alone Forms: Patient Portal Discharge page Care Plan Goals: weight loss Health Concerns: morbid obesity Plan of Treatment: No tub baths, sex or returning to work until discussed at first post op appointment. No exercise, alcohol, tobacco or illegal drug use. Continue to use incentive spirometer hourly while awake. Walk in home for 5- 10 minutes every 2 hours during the first week. Follow all instructions in the bariatric handbook and call with any questions.Discharge Instructions 1. Please call your doctor or come back to the emergency room should any new symptoms arise. 2. You will receive a courtesy call from [facility] 24-48 hours after discharge. 3. Activity: abstain from alcohol, practice limited stair climbing, no bending, no driving, no exercise, no illicit substances, no lifting, no sex, no tub bath, no work. 4. Diet: continue as discussed with Dr. Toro. 5. Dressing Change/Wound Care: Your incision is covered by clear bandages and guaze underneath. If the area is tender, you may apply an ice pack for short intervals (no more than 20 minutes on, followed by at least 20 minutes off). Do not apply heat. Do not use creams, lotions, or topical antibiotics unless instructed to do so by your surgeon. These can cause infection or allergic reaction. 6. Call your doctor if: - Your temperature exceeds 101.5 F - You experience excessive pain or swelling - You have an unexpected reaction to medication - You have excessive bleeding - You experience continued vomiting/nausea - Your incision begins to separate - Your incision shows signs of infection such as increased redness, swelling, excessive pain, heat, or drainage (light blood or clear fluid is normal) 7. General instructions: No lifting greater than 5 lbs for the next 4 weeks[address] within 24 hours of taking narcotic pain medications. If you do not move your bowels in the next 2 days, please take milk of magnesia over the counter. Please follow the post op diet and do not advance your diet until you are seen in the office in about 2 weeks. Please walk around your home every hour or two to prevent blood clots from forming in your legs. You do not need to wake from sleeping to walk. Please sleep in a bed or couch to prevent kinking at the hips and knees. Please take your incentive spirometer (your lung foster care case manager) home with you and use it for the next few days to prevent pneumonias. You may shower, no hot tubs, baths or swimming pools. Please call the office with any questions or concerns such as increasing abdominal pain, fever, chills, shortness of breath, chest pain, leg pain or swelling, or redness or drainage from your incisions. Please stay on stage 3 diet which includes sugar free clear liquids such as ice pops and jello and broth and crystal light. Avoid all carbonation. Please drink 3 protein shakes with at least 25-30 grams of protein daily or 3 of the Celebrate 4:1 shakes which can be purchased in our office. The Celebrate shakes have all of the bariatric vitamins you need if you consume these shakes. If you are drinking other protein shakes, you will need to purchase the Celebrate multivitamins and calcium that we provide in the office (they will provide all the vitamins you need). Please make sure you are consuming at least 40-60 ounces of water in addition to your 3 protein shakes daily. Do not hesitate to contact the office with any questions at . The patient's medical history has been reviewed and they are considered low risk for post op DVT and therefore DVT prophylaxis is not considered necessary. Travel after surgery was reviewed. The patient has not disclosed any travel plans during the first 30 days after surgery and they have been advised that within the first 30 days after surgery any bus, plane, train or car travel over 2 hours in duration is contraindicated due to the possibility of developing blood clots from immobility. Any travel, needs to include periods of ambulation of 10 minutes in duration every 2 hours.? The patient was instructed to discuss any plans for travel during this period with their bariatric surgeon. Assessment: stable s/p laparoscopic sleeve gastrectomy Discharge Date/Time: 03/19/22 08:52
--- NOTE | 2022-03-18 10:28 | PM.OP ---
Brief Operative Note Date of Service: 03/18/22 Pre-op diagnosis: Morbid obesity with comorbidities (see below0 Post-op diagnosis: same Procedure: INITIAL PATIENT BMI ON PRESENTATION AT OUR OFFICE: 57 kg/m2 LAST BMI BEFORE SURGERY: 47.4 kg/m2 COMORBIDITIES: prediabetes, GERD, hyperlipidemia, hypertension, depression, anxiety, DJD, liver fibrosis, liver steatosis ?The patient presented to the Weight Management Program with significant obesity that was negatively impacting the patient's comorbidities as listed above.? The program is a phased program with a special focus on preoperative medical weight management to promote substantial weight loss and prepare the patients for the second phase of the program: bariatric surgery. The patient participated in an intensive weekly lifestyle ?intervention and exercise program during which the patient ?has lost between the initial office visit and the last preoperative visit 57.6 lbs, or 16.51% of initial actual body weight. It was deemed appropriate for the patient to now have bariatric surgery. In light of the current Covid-19 pandemic and the well documented strong association of obesity and increased risk of worse outcomes if infected with Covid-19 (REFERENCES:https://pubmed.ncbi.nlm.nih.gov/98631962/,?https://pubmed.ncbi.nlm.nih.gov/32825582/), any delay in undergoing bariatric surgery may lead to the patient's worsening health condition and increased?risk of more severe Covid-19 disease if infected. In addition a recent?study from [facility] published in [facility] Surgery on 07/28/2021 ([email or web address]) found that, among patients with obesity, substantial weight loss achieved with surgery was associated with improved outcomes of COVID-19 infection. The findings suggest that obesity can be a modifiable risk factor for the severity of COVID-19 infection. In addition, the patient met the BMI-criteria for bariatric surgery based on the BMI on initial presentation. The patient should not be penalized for achieving such weight loss because ?it is not sustainable long-term without surgical intervention and it was achieved in preparation for bariatric surgery ?under my direction and based on my published research ([email or web address]).[email or web address] and?https://www.soard.org/article/S3204-1768(98)95930-X/pdf) ?that a 10% preoperative weight loss improves long-term weight loss after surgery and reduces perioperative complications.? Insurance carriers such as [employer] have endorsed my recommendations ?and have included in their policies criteria to include a 10% preoperative weight loss requirement. PROCEDURE: Esophago-gastroscopy, laparoscopic sleeve gastrectomy and laparoscopic gastropexy INDICATIONS: This is a 36 year-old female who was electively scheduled for laparoscopic, possibly open sleeve gastrectomy. The risks and complications of the procedure were discussed with the patient in advance, particularly the possibility of ; pulmonary embolism; staple line leak; bleeding; GERD; cardiac, pulmonary, or renal complications; as well as long-term problems such as insufficient weight loss, vitamin deficiency, strictures, or ulcers. The patient understood all the risks, and was in agreement to proceed with surgery. DESCRIPTION OF PROCEDURE: After informed consent was obtained from the patient, the patient was given preoperative antibiotics, and was transferred to the operating room. After successful induction of general anesthesia, pneumatic compression devices were placed on both lower extremities. An upper endoscopy was performed next. The oropharynx and esophagus appeared to be within normal limits. There was no diaphragmatic hernia present consistent with the findings of the preoperative upper GI. The stomach was entered. Then after all fluid and air were suctioned and the stomach was fully decompressed, the scope was withdrawn and secured in the mid esophagus. The patient was then prepped and draped in the usual sterile manner, and abdominal access was established at the right upper quadrant with the Nikolas technique. A 12 mm blunt port was inserted, and the abdomen was insufflated with CO2 to a pressure of 15 mmHg. Under direct visualization, additional ports were placed, specifically two 5 mm Versi-step ports to the left upper quadrant, and a 5 mm Versi-Step port to the right upper quadrant. 1% lidocaine plain was used to infiltrate all port sites as well as all fascia defects. Using the EndoClose suture passer device, I placed a #1 Polysorb tie across the falciform ligament in order to retract it up against the abdominal wall and prevent injury of the ligament with our instruments during the procedure. Following that, the patient was placed in a steep reverse Trendelenburg position. An additional 5 mm port was placed to the right flank for the Mediflex retractor that was used to retract the left lobe of the liver. The gastro-esophageal fat pad was opened with the ultrasonic device (Thunderbeat, Olympus) and the anterior esophagus and hiatus were exposed. The angle of His was opened with the ultrasonic device the fundus of the stomach from any diaphragmatic and splenic attachments. I then opened the gastrocolic ligament between the transverse colon and the greater curvature of the stomach with the ultrasonic device to enter the lesser sac and facilitate the ligation of the short gastric vessels. I started at a mid-point along the greater curvature and using the Thunderbeat, all short gastric vessels were divided all the way to the angle of His until the left marivel was completely dissected at its entirety. I then divided the gastro-colic ligament distally to a distance of about 3-4 cm proximal to the pylorus. The stomach was then divided transversely with one Endo NORY-45 purple, and four NORY-60 articulating orange loads using the AEON stapler and loads. Every effort was made that the gastric sleeve had a tubular shape and an even caliber throughout. Once the sleeve resection was completed, the staple line of the gastric sleeve was reinforced with Hemoclips. The resected stomach was retrieved without difficulty from the Nikolas port. A gastropexy was then performed in order to prevent postoperative GERD and partial gastric volvulus. Several interrupted 2.0 Surgidac sutures were placed between the sleeve's staple line and the previously divided greater omentum and gastro-colic ligament using the Endo-Stitch device. ?An upper endoscopy was performed. There was no narrowing at the GE junction. The scope was easily advanced all the way to the pylorus which was clearly visualized. There was no narrowing anywhere and the sleeve's caliber was even throughout. The sleeve's staple line was inspected and there was no evidence of ischemia, bleeding or dehiscence. At that point the gastroscope was withdrawn from the patient?s mouth while we were decompressing the bowel and the stomach from any remaining air. I looked into the lesser sac to see how the sleeve was situating and it was situating well. There was no bleeding from the staple line, spleen, or short gastric vessels. The Mediflex retractor was removed, and the undersurface of the liver was inspected and there was no bleeding. The patient was placed in supine position. I closed the fascial defect of the 12 mm port site with a figure of eight #1 Polysorb suture. Then 60 cc of Ropivacaine plain with 10 mg of Dexamethasone were used to infiltrate the fascial closure as well as all skin incisions. A total of 7ml of Zynrelef was applied in the Nikolas wound. At this point, the abdomen was deflated, all ports were removed under direct vision, and no bleeding was noted from any of the port sites. The skin incisions were irrigated with saline and were closed with 4-0 absorbable monofilament sutures. Steri-Strips and OpSites were used to cover all incisions. The patient was extubated and was transferred in stable condition to the recovery room for further care. I was present and performed all juárez parts of the procedure. Mr. Gaines was the customer assistant. There were no residents to assist with this case. Jonnie Toro MD, PhD, FACS Surgeon: Gucci Toro MD Anesthesia: GETA, local and other (TAP & 7ml Zynrelef) Was an Physical Therapy Assistant Instructor used for this Procedure?: Yes Physical Therapy Assistant Instructor: Nestor Gaines Estimated blood loss (mL): 10 IV fluids (mL): 2,500 Urine output (mL): 0 (No Figueroa to record) Pathology: other (Stomach) Condition: stable Disposition: PACU
--- NOTE | 2022-03-18 10:33 | PM.PNGS ---
Subjective Subjective Date of Service: 03/19/22 Interval history: Patient has mild incisional pain, but was able to ambulate and use the incentive spirometer. She is tolerating phase 1 bariatric diet Physical Exam Vital Signs: Vital Signs: Last Vital Signs Temp 98.9 F 03/18/22 10:20 Pulse 93 03/18/22 10:25 Resp 16 03/18/22 10:25 BP 126/58 L 03/18/22 10:25 Pulse Ox 100 03/18/22 10:25 O2 Del Method 03/18/22 10:25 O2 Flow Rate 6 03/18/22 10:25 BMI result Body Mass Index 48.7 GI: Inspection: Yes normal to inspection, Yes incision (clean, dry and intact) and Yes obesity Extrem: Right lower extremity: normal to inspection (no calf tenderness) Left lower extremity: normal to inspection (no calf tenderness) Objective Data Active Medications Fentanyl (Fentanyl Citrate/Pf 100 Mcg/2 Ml Vial) 50 mcg IVPUSH Q5M PRN; Protocol PRN Reason: Pain, Severe (Pain Scale 7-10) Lactated Ringer's (Lr) 1,000 mls @ 100 mls/hr IVCONT .Q10H TANJA Last Admin: 03/18/22 07:07 Dose: 100 mls/hr Documented By: JACKIE Ondansetron HCl (Ondansetron Hcl 4 Mg/2 Ml Vial) 4 mg IVPUSH ONCE PRN PRN Reason: Nausea and Vomiting Labs CBC & Chem 7: 03/19/22 06:11 03/19/22 06:11 Labs: Laboratory Results - last 24 hr 03/17/22 03/18/22 03/18/22 11:50 06:37 06:38 Urine Test NEGATIVE COVID-19 (ADALBERTO) Cancelled Negative COVID-19 Clin Com Cancelled See Note Procedures Date of Service Date of Service: 03/19/22 Progress Note: A&P Assessment and plan (1) Morbid obesity: Status: Acute Assessment and Plan: s/p laparoscopic sleeve gastrectomy and gastropexy Doing well Check am labs. If OK, will discharge home (2) S/P laparoscopic sleeve gastrectomy: Status: Acute (3) HTN (hypertension), benign: Status: Acute (4) Depression: Status: Acute (5) PTSD (post-traumatic stress disorder): Status: Acute (6) Migraine: Status: Acute (7) Anxiety: Status: Acute (8) GERD (gastroesophageal reflux disease): Status: Acute (9) Steatosis, liver: Status: Acute (10) Liver fibrosis: Status: Acute (11) Hyperlipidemia: Status: Acute (12) Prediabetes: Status: Acute (13) DJD (degenerative joint disease): Status: Acute Time Spent With Patient Time: Total time spent is greater than 50% in coordination of care (as documented) at patient's floor/unit and/or counseling patient: Quality Stroke Does the patient have a stroke diagnosis?: No VTE Prior VTE?: No VTE Risk Level:: Surgical - moderate VTE Device Contraindication: N/A - Device Ordered VTE Drug Contraindication: Treatment Not Indicated
[2022-03-18 10:47] LABS: Hematocrit 42.4 % (37.0-47.0)
[2022-03-18] MEDS: fentaNYL citrate/PF 100 MCG/2 ML VIAL 50 MCG IVPUSH ×4 (10:56→13:33)
[2022-03-18 11:03] LABS: Anion Gap 15 (12-20); Blood Urea Nitrogen 15 mg/dL (9-16); Carbon Dioxide 23 mmol/L (22-29); Chloride 104 mmol/L (96-108); Creatinine Clr Calc Pharmacy 114.3; Estimated Glomerular Filt Rate > 60; Glucose Random 135 mg/dL (60-115); Potassium 4.4 mmol/L (3.3-5.1); Sodium 138 mmol/L (135-145)
[2022-03-18] MEDS: Famotidine/PF 20 MG/2 ML VIAL IVPUSH ×2 (11:12→20:54)
[2022-03-18] MEDS: ceFAZolin Sodium/Dextrose,Iso 2 GM/50 ML PIGGYBACK IV (13:43)
[2022-03-18] MEDS: ondansetron HCL 4 MG/2 ML VIAL IVPUSH ×2 (14:55→21:15)
[2022-03-18] MEDS: Metoclopramide HCl 10 MG/2 ML VIAL IVPUSH (16:15)
[2022-03-18] MEDS: VerapamiL HCL SR 180 MG TABLET.ER PO (20:53)
[2022-03-18] MEDS: 0.9 % Sodium Chloride Flush 3 ML SYRINGE IVFLUSH (20:58)
[2022-03-18] MEDS: HYDROmorphone HCl 0.5 MG/0.5 ML SYRINGE 0.25 MG IVPUSH (21:15)
[2022-03-19 00:01] VITALS: BP 120/56; PULSE 79; RESP 17; TEMP 36.5; O2SAT 93
[2022-03-19 03:38] VITALS: BP 119/59; PULSE 69; RESP 17; TEMP 36.1; O2SAT 93
[2022-03-19 06:26] LABS: MANUAL DIFF FLAG NO
[2022-03-19 06:29] LABS: Basophils Percent Auto 0.1 % (0-2); Hematocrit 36.5 % (37.0-47.0); Hemoglobin 12.2 g/dl (12.0-16.0); Imm Gran Abs Auto 0.09 X10*3/uL (0.00-0.03); Imm Gran Pct Auto 0.6 % (0.0-0.4); Lymphocytes Absolute Auto 1.1 X10*3/uL (1.2-4.9); Lymphocytes Percent Auto 7.1 % (20-40); Mean Corpuscular HGB Conc 33.4 g/dl (31.0-35.0); Mean Corpuscular Hemoglobin 28.5 pg (27.0-33.0); Mean Corpuscular Volume 85.3 fL (80.0-98.0); Mean Platelet Volume 12.9 fL (9.4-12.3); Monocytes Absolute Auto 1.2 X10*3/uL (0.1-1.2); Monocytes Percent Auto 7.5 % (2-11); Neutrophils Absolute Auto 13.3 x10*3/uL (2.0-8.3); Neutrophils Percent Auto 84.7 % (45-73); Platelet Count 177 X10*3/uL (160-400); Red Blood Count 4.28 X10*6/uL (4.20-5.50); Red Cell Distribution Width 15.1 % (11.0-16.0); White Blood Count 15.7 X10*3/uL (4.8-10.8)
[2022-03-19] MEDS: Lactated Ringers 1,000 ML 100 ML IVCONT (06:38)
[2022-03-19 06:42] LABS: Anion Gap 14 (12-20); Blood Urea Nitrogen 10 mg/dL (9-16); Calcium 8.6 mg/dL (8.4-10.2); Carbon Dioxide 25 mmol/L (22-29); Chloride 104 mmol/L (96-108); Creatinine Clr Calc Pharmacy 144.1; Estimated Glomerular Filt Rate > 60; Glucose Random 102 mg/dL (60-115); Potassium 4.3 mmol/L (3.3-5.1); Sodium 139 mmol/L (135-145)
[2022-03-19] MEDS: ondansetron HCL 4 MG/2 ML VIAL IVPUSH (07:03)
[2022-03-19] MEDS: Escitalopram Oxalate 20 MG TABLET PO (07:34)
[2022-03-19] MEDS: Famotidine/PF 20 MG/2 ML VIAL IVPUSH (07:34)
[2022-03-19] MEDS: Metoprolol Succinate ER 25 MG TAB.ER.24H PO (07:35)
[2022-03-19 08:00] VITALS: BP 131/62; PULSE 59; RESP 18; TEMP 36.9; O2SAT 94
--- NOTE | 2022-03-19 08:52 | HO.POSTANES ---
Post Anesthesia Evaluation Post Anesthesia Evaluation Vital Signs: Vital Signs Temp Pulse Resp BP Pulse Ox O2 Del Method 03/19/22 08:00 98.5 F 59 18 131/62 94 Room Air 03/19/22 06:52 Room Air 03/19/22 03:38 96.9 F 69 17 119/59 L 93 Room Air 03/19/22 00:01 97.7 F 79 17 120/56 L 93 Room Air Anesthesia: General Endotracheal-GETA Mental Status: Awake Pain Control: Satisfactory Nausea/Vomiting: None Hydration: Adequate Anesthesia-Related Issues: No Anes. Related Issues
[2022-03-20 08:51] LABS: ABG Base Excess -1.9 mmol/L; ABG HCO3 22 mmol/L (22-26); ABG pCO2 36 mmHg (32-45); ABG pH 7.39 (7.35-7.45); ABG pO2 74 mmHg (83-108)
== END 2022-03-19 08:52 | disposition home or self-care (01) | DRG 403 ==
LOC: HO.SSSA 10:26 → HO.S3 13:16
PROVIDERS: Nurse Practitioner; Physician Assistant Surgical; Admitting Provider Surgery; PCP Internal Medicine; Visit Provider Surgery
PROC: 0DB64Z3 Excision of Stomach, Percutaneous Endoscopic Approach, Vertical (ICD-10-PCS; CPT 43845; principal; 2022-03-18 07:30)
DX: E66.01 Morbid (severe) obesity due to excess calories (principal); K74.00 Hepatic fibrosis, unspecified; I10 Essential (primary) hypertension; K76.0 Fatty (change of) liver, not elsewhere classified; F41.9 Anxiety disorder, unspecified; J45.990 Exercise induced bronchospasm; F43.10 Post-traumatic stress disorder, unspecified; G43.909 Migraine, unspecified, not intractable, without status migrainosus; R73.03 Prediabetes; K21.9 Gastro-esophageal reflux disease without esophagitis; E78.5 Hyperlipidemia, unspecified; Z68.42 Body mass index [BMI] 45.0-49.9, adult; Z20.822 Contact with and (suspected) exposure to COVID-19; Z79.899 Other long term (current) drug therapy
CPT/HCPCS: 36415; 80048; 80053; 80061; 81025; 82803; 83036; 83525; 84443; 85014; 85018; 85025; 85610; 85730; 86140; 86850; 86900; 86901; 87635; 88307; 88342; A4649; C9088; J0131; J0690; J1100; J1170; J2250; J2405; J2765; J2795; J3010

== ENCOUNTER → 2022-08-13 10:41 | Outpatient (BNVA) | payer BC, SELFPAY | PROVIDERS: PCP Internal Medicine; Visit Provider Physician Assistant Surgical | DX: E66.9 Obesity, unspecified (principal) ==

== ENCOUNTER 2022-10-09 08:35 | Outpatient (REF) | payer BC, SELFPAY ==
[2022-10-09 08:53] LABS: MANUAL DIFF FLAG NO
[2022-10-09 09:59] LABS: Basophils Percent Auto 0.5 % (0-2); Eosinophils Absolute Auto 0.1 X10*3/uL (0.0-0.4); Eosinophils Percent Auto 0.8 % (0-4); Hematocrit 41.5 % (37.0-47.0); Hemoglobin 13.4 g/dl (12.0-16.0); Imm Gran Abs Auto 0.02 X10*3/uL (0.00-0.03); Imm Gran Pct Auto 0.3 % (0.0-0.4); Lymphocytes Absolute Auto 2.1 X10*3/uL (1.2-4.9); Lymphocytes Percent Auto 31.8 % (20-40); Mean Corpuscular HGB Conc 32.3 g/dl (31.0-35.0); Mean Corpuscular Hemoglobin 28.3 pg (27.0-33.0); Mean Corpuscular Volume 87.7 fL (80.0-98.0); Mean Platelet Volume 11.9 fL (9.4-12.3); Monocytes Absolute Auto 0.6 X10*3/uL (0.1-1.2); Monocytes Percent Auto 8.9 % (2-11); Neutrophils Absolute Auto 3.8 x10*3/uL (2.0-8.3); Neutrophils Percent Auto 57.7 % (45-73); Platelet Count 233 X10*3/uL (160-400); Red Blood Count 4.73 X10*6/uL (4.20-5.50); Red Cell Distribution Width 14.9 % (11.0-16.0); White Blood Count 6.6 X10*3/uL (4.8-10.8)
[2022-10-09 10:06] LABS: Prothrombin Time 11.2 SEC (10.0-13.1)
[2022-10-09 10:09] LABS: Partial Thromboplastin Time 29.2 SEC (26.0-36.4)
[2022-10-09 12:27] LABS: Estimated Average Glucose 100 mg/dL; Hemoglobin A1c % 5.1 %
[2022-10-09 12:54] LABS: Alanine Aminotransferase 14 U/L (0-31); Albumin Level 4.1 g/dL (3.5-5.0); Alkaline Phosphatase 48 U/L (39-117); Anion Gap 14 (12-20); Aspartate Amino Transferase 13 U/L (5-31); Bilirubin Total 0.5 mg/dL (0.0-1.0); Blood Urea Nitrogen 16 mg/dL (9-16); C Reactive Protein 0.11 mg/dL (< or = 0.50); Calcium 9.3 mg/dL (8.4-10.2); Carbon Dioxide 26 mmol/L (22-29); Chloride 103 mmol/L (96-108); Cholesterol 240 mg/dL; Estimated Glomerular Filt Rate > 60; Glucose Random 87 mg/dL (60-115); HDL Cholesterol 43 mg/dL; LDL Cholesterol Calculated 175 mg/dl; Potassium 4.4 mmol/L (3.3-5.1); Sodium 139 mmol/L (135-145); Total Protein 6.3 g/dL (6.5-8.0); Triglycerides 110 mg/dL
== END 2022-10-09 08:36 | disposition home or self-care (01) ==
LOC: HO.LAB 08:35
PROVIDERS: Absent Provider Physician Assistant; PCP Internal Medicine; Visit Provider Physician Assistant Surgical
DX: E66.01 Morbid (severe) obesity due to excess calories (principal); Z98.84 Bariatric surgery status
CPT/HCPCS: 36415; 80053; 80061; 83036; 84443; 85025; 85610; 85730; 86140; 86850; 86900; 86901

== ENCOUNTER → 2022-10-23 14:01 | Outpatient (BNVA) | payer BC, SELFPAY | PROVIDERS: PCP Internal Medicine; Visit Provider Physician Assistant Surgical | DX: Z13.89 Encounter for screening for other disorder (principal) ==

== ENCOUNTER 2023-02-16 14:00 | Outpatient (AMB) | payer BC, SELFPAY ==
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
[2023-02-16 14:08] VITALS: BMI 38.7
== END 2023-02-16 14:26 | disposition home or self-care (01) ==
LOC: HO.HBS 14:22
PROVIDERS: PCP Internal Medicine; Visit Provider Physician Assistant Surgical
DX: E66.9 Obesity, unspecified (principal); Z68.38 Body mass index [BMI] 38.0-38.9, adult; Z90.3 Acquired absence of stomach [part of]; Z98.84 Bariatric surgery status
CPT/HCPCS: 99214

== ENCOUNTER → 2023-02-16 14:00 | Outpatient (BNVA) | payer BC, SELFPAY | PROVIDERS: PCP Internal Medicine; Visit Provider Physician Assistant Surgical ==

== ENCOUNTER 2023-07-15 10:48 | Outpatient (AMB) | payer BC, SELFPAY ==
[2023-07-15 10:29] VITALS: BMI 38.9
--- NOTE | 2023-07-15 10:29 | MHC.OFFVISWM ---
Intake VS Expanded 07/15/23 10:29 Height 5 ft 6 in Weight 240 lb 14 oz BMI 38.9 Intake Visit Reasons: (VIDEO) PO LSG 03/18/22 Allergies Sulfa (Sulfonamide Antibiotics) Allergy (Severe, Verified 10/23/22 14:25) Blister Medication List - Last Reconciled 07/15/23 by LEEANNA Wilson albuterol sulfate 90 mcg/actuation (ProAir RespiClick) 2 inhalations inhalation Q4H PRN citalopram 40 mg PO QAM clotrimazole 1% 1 appl topical BID lorazepam 0.5 mg PO DAILY PRN HPI HPI Comments History of Present Illness Details This?is a?37?yo female who is s/p LSG on?03/18/2022. Presents for 16 month post op visit. Weight gain of 0.8lbs since last visit in January.? No complaints of nausea, emesis, abdominal pain or reflux, or constipation. She is now , moved out to a new place, feels safe now although she feels life is really crazy due to now being a single mom. Present meal plan includes: not following anything structured Exercise routine includes: could not take elliptical with her when she moved Continues to have problems with rashes of excess skin of abdomen; has to shower every day, keep very dry, uses clotrimazole cream anytime she notices redness which does help somewhat. This worsened in summertime when weather is warmer, causing increased sweating. Also notes problems of excess skin of arms which is very uncomfortable especially with movement. Has to wear compressive sleeves to hold skin in place. Notices friction/chafing where arm meets torso. [facility] Medical History Anxiety COVID-19 vaccine series completed Depression Eating disorder Exercise-induced asthma HTN (hypertension) Migraine PTSD (post-traumatic stress disorder) Surgical History History of colposcopy History of placement of ear tubes Hx of adenoidectomy Hx of bladder endoscopy Hx of bone graft Hx of colonoscopy Hx of dilation and curettage Hx of wisdom tooth extraction Family History Mother Depression Alcoholism Father No problems noted. Sister Obesity Thyroid condition Depression Anxiety Sister No problems noted. Brother No problems noted. Daughter No problems noted. Social History Are you a primary restorative care technician to a significant other at home: No Do you presently have visiting nurse or other home services: No Alcohol intake: never Patient Tobacco Use Status: Never used Tobacco Assessment & Plan Assessment & Plan (1) Obesity: Code(s): E66.9 - Obesity, unspecified (2) S/P laparoscopic sleeve gastrectomy: Code(s): Z98.84 - Bariatric surgery status Plan New meal plan to include 2 Orgain shakes (2 scoops in 8oz UAM), 1 Quest bar, 1 Israeli yogurt, and 1 meal of 6 forks protein/6 forks salad/veg. Sent pt photo of home workouts. Resume MVI, labs ordered. Pt interested in meeting with , will schedule. RTC 4-6 weeks. Sent meal plan via text and encouraged pt to reach out between appts with any questions. Patient is obese and is not considered stable at this time. I spent a total of 30 minutes reviewing/updating records, examining the patient and counseling the patient on weight management as detailed above. Orders: Orders Insulin Today Z98.84 - Bariatric surgery status Complete Blood Count Auto Diff Today Z98.84 - Bariatric surgery status Lipid Panel Today Z98.84 - Bariatric surgery status IRON PROFILE Today Z98.84 - Bariatric surgery status Comprehensive Met. Panel Today Z98.84 - Bariatric surgery status Zinc Today Z98.84 - Bariatric surgery status C Reactive Protein Today Z98.84 - Bariatric surgery status Vitamin A Today Z98.84 - Bariatric surgery status Ferritin Today Z98.84 - Bariatric surgery status Hemoglobin A1c Today Z98.84 - Bariatric surgery status Vitamin B12 and Folate Today Z98.84 - Bariatric surgery status Vitamin B1 Today Z98.84 - Bariatric surgery status TSH reflex Free T4 Today Z98.84 - Bariatric surgery status Vitamin D 25-OH Total Today Z98.84 - Bariatric surgery status Telehealth Telehealth Location of provider rendering services: practice address Location of patient: address on file Patient Identification confirmed using: Name, : Yes Telehealth method: video Patient verbally consented to treatment: Yes Patient verbally consented to billing insurance company: Yes Patient informed of any privacy concerns related to visit: Yes Coding Level of Care Code Est Pt Level 4 (06343) Diagnoses Obesity E66.9 S/P laparoscopic sleeve gastrectomy Z98.84
== END 2023-07-15 10:59 | disposition home or self-care (01) ==
LOC: HO.HBS 10:48
PROVIDERS: PCP Internal Medicine; Visit Provider Physician Assistant Surgical
DX: E66.9 Obesity, unspecified (principal); Z98.84 Bariatric surgery status; Z90.3 Acquired absence of stomach [part of]; Z68.38 Body mass index [BMI] 38.0-38.9, adult
CPT/HCPCS: 99214

== ENCOUNTER → 2023-07-15 10:48 | Outpatient (BNVA) | payer BC, SELFPAY | PROVIDERS: PCP Internal Medicine; Visit Provider Physician Assistant Surgical | DX: Z98.84 Bariatric surgery status (principal) ==